=== PATIENT | female | born 1980 | race Caucasian/White ===

== ENCOUNTER 2016-10-26 00:25 | Inpatient (IN) | payer OTHER ==
[~2016-10-26] VITALS: Ht 157.5 cm; Wt 69.4 kg
[2016-10-26] VITALS (16 sets, daily range): BP systolic 118–141; BP diastolic 78–94; PULSE 70–84; RESP 16–20; TEMP 97.9
[~2016-10-26 00:25] MED LIST: IBUP600 PO; OXYC1SOL5 PO; PREN0.01 PO
[2016-10-26] MEDS ORDERED: LACTATED RINGER'S 1000 ML INJ 1,000 ML IV SCH (01:28)
[2016-10-26] MEDS ORDERED: LACTATED RINGER'S 1000 ML INJ 1,000 ML IV PRN (01:28)
--- NOTE | 2016-10-26 01:28 | HHI.HP ---
HPI Chief Complaint My water broke and graham Date Seen: Oct 26, 2016 Travel History International Travel<30 Days: No Contact w/Intl Traveler<30Days: No Known Affected Area: No History of Present Illness HPI This patient is 36-year-old white female at 36-1/2 weeks who presents with gross spontaneous rupture the membranes and labor, she denies bleeding. She sees Dr. Galan for care. On the heart tones are within normal limits ,reactive, contractions are noted every 2-3 minutes. The amnio sure was positive Para: 1 : 2 History Obstetric History Obstetric History One vaginal delivery and with that had gestational diabetes Social History Alcohol Use: No Tobacco Use: No Substance Abuse: No Allergies-Medications (Allergen,Severity, Reaction): Coded Allergies: No Known Allergies (Unverified , 07/25/14) Home Meds Active Scripts Oxycodone W/ Acetaminophen (Oxycodone/Acetaminophen 5-325 mg/5Ml)1 Tab Tab1 Tab PO Q4H #15 TAB Prov:Patricia Royal MD 07/26/14 Ibuprofen (Motrin 600 Mg Tab)600 Mg [id number] Mg PO Q6H PRN ( CRAMPING) # 30 TAB Prov:Patricia Royal MD 07/26/14 Reported Medications Multivit/Min/Fol Ac/Iron/Pren ( Vit ( Plus)) Tab1 Tab PO DAILY 07/25/14 Review of Systems General / Constitutional: No: Fever, Weight Gain, Chills, Other Eyes: No: Diploplia, Blurred Vision, Visual changes, Pain, Photophobia HENT: No: Headaches, Vertigo, Lightheadedness Cardiovascular: No: Irregular Rhythm, Chest Pain or Discomfort, Palpitations, Tachycardia, Syncope, Varicosities, Edema, Cyanosis Respiratory: No: Cough, Short of Breath, Other Gastrointestinal: No: Nausea, Vomiting, Diarrhea Genitourinary: No: Decreased Urinary Output, Oliguria Musculoskeletal: No: Limited ROM, Weakness, Cramping, Edema, Pain Skin: No Rash, No Itching, No Dryness, No Lumps, No Change in Pigmentation, No Change in Nails, No Alopecia, No Lesions Neurologic: No: Weakness, Dizziness, Syncope, Focal Abnormalities, Coordination Problem, Headache, Slurred Speech, Seizures Psychiatric: No: Depression, Suicidal Ideations, Homicidal Ideation Endocrine: No: Heat Intolerance, Cold Intolerance, Polydipsia, Polyuria, Other Physical Exam Narrative GENERAL: Well-nourished, well-developed patient. SKIN: Warm and dry. HEAD: Normocephalic and atraumatic. EYES: No scleral icterus. No injection or drainage. ENT: No nasal drainage noted. Mucous membranes pink. Airway patent. NECK: Supple, trachea midline. No JVD. CARDIOVASCULAR: Regular rate and rhythm without murmurs, gallops, or rubs. RESPIRATORY: Breath sounds equal bilaterally. No accessory muscle use. BREASTS: Bilateral exam showed no masses , no retractions, no nipple discharge. ABDOMEN/GI: Abdomen soft, non-tender, bowel sounds present, no rebound, no guarding Gravid to [35-] weeks size Fundal Height: [36-] GENITOURINARY: External Genitalia: intact and normal in appearance BUS glands: [-] Cervix: [-] Dilatation: [4-5-] Effacement: [90-] Station: [-1] Presentation: [-vtx] Membranes: ruptured] amnio sure positive Uterine Contractions: [-q 2-3 min] FHT's: Category: [-1] Baseline: [-133] Reactive: [yes-] Variability: [mod-] Decels: [none-] EXTREMITIES: No cyanosis or edema. BACK: Nontender without obvious deformity. No CVA tenderness. NEUROLOGICAL: Awake and alert. Motor and sensory grossly within normal limits. Five out of 5 muscle strength in all muscle groups. Normal speech. Data Data Labs Amnio sure positive Assessment/Plan Assessment and Plan This patient is 36-year-old white female 36-1/2 weeks presents with ruptured membranes in labor. Cervix is 4-5 cm 90% -1 vertex, amnio sure is positive gross rupture membranes noted on exam, she is graham every 2-3 minutes with a lot of pain., will contact Dr. Galan of the [facility] notify her of the patient's arrival Obed Garcia II, MD Oct 26, 2016 01:28
[2016-10-26] MEDS ORDERED: CITRIC ACID-SODIUM CITRATE LIQ 30 ML UDC PO SCH (01:30)
[2016-10-26] MEDS ORDERED: PENICILLIN G POTASSIUM INJ 5,000,000 UNITS in SODIUM CHLORIDE 0.9% INJ 100 ML IV ONE (01:30)
[2016-10-26] MEDS ORDERED: MINERAL OIL 10 ML VIAL TOPICAL PRN (01:30)
[2016-10-26] MEDS ORDERED: LIDOCAINE HCL 1% 50 ML VIAL INFIL PRN (01:30)
[2016-10-26] MEDS ORDERED: OXYTOCIN 30 UNITS-500ML PREMIX 500 ML IV ONE (01:30)
[2016-10-26] MEDS ORDERED: SODIUM CHLORID 0.9% 500 ML INJ 500 ML IV PRN (01:30)
[2016-10-26] MEDS ORDERED: LIDOCAINE HCL 1% 50 ML VIAL I-DERMAL PRN (01:30)
[2016-10-26] MEDS ORDERED: SODIUM CHLOR 0.9% 1000 ML INJ 1,000 ML IV PRN (01:48)
[2016-10-26 01:50] LABS: BLOOD, URINE NEG (NEG); GLUCOSE,URINE NEG (NEG); HYALINE CAST, URINE 1 /lpf (RARE); KETONE, URINE NEG (NEG); NITRITE,URINE NEG (NEG); PH, URINE 6.5 (5.0-8.5); SQUAMOUS EPITHELIAL CELL URINE <1 /hpf (0-5); TRANSITIONAL EPI CELLS, URINE <1 /hpf; URINE COLOR LIGHT-YELLOW (YELLW/STRAW)
[2016-10-26 01:51] LABS: COMMENT (UR) CULT NOT INDICATED; CULTURE IF INDICATED CULT NOT INDICATED
[2016-10-26 02:15] LABS: AUTOMATED NEUTROPHIL # 8.7 TH/MM3 (1.8-7.7); BASOPHIL % 0.3 % (0.0-2.0); EOSINOPHIL # 0.3 TH/MM3 (0-0.4); EOSINOPHIL % 2.6 % (0.0-4.0); HEMATOCRIT 36.3 % (35.0-46.0); HEMO FLAGS DIFF FINAL; LYMPH % 17.1 % (9.0-44.0); MEAN CELL VOLUME 83.8 FL (80.0-100.0); MEAN CORPUSCULAR HEMOGLOBIN 27.9 PG (27.0-34.0); MEAN CORPUSCULAR HGB CONC 33.2 % (32.0-36.0); MONO % 7.2 % (0.0-8.0); NEUT % 72.8 % (16.0-70.0); PLATELET COUNT 230 TH/MM3 (150-450); RED BLOOD COUNT 4.33 MIL/MM3 (4.00-5.30); RED CELL DISTRIBUTION WIDTH 14.4 % (11.6-17.2)
[2016-10-26 02:35] LABS: AMPHETAMINE, URINE NEG (NEG); BARBITURATES, URINE NEG (NEG); COCAINE, URINE NEG (NEG)
--- NOTE | 2016-10-26 02:54 | PD.OB.DELI ---
Delivery Date: Oct 26, 2016 Anesthesia: None Episiotomy: None Vaginal Delivery: Normal Presentation: Occiput anterior Nuchal Cord: None Delayed cord clamping (45 sec): Yes Infant: Female One Minute : 8 Five Minute : 9 Weight: 5 lb 15 Placenta: Spontaneous delivery Laceration: No lacerations Additional Information ebl 300ml Gabrielle Galan MD Oct 26, 2016 02:54
[2016-10-26] MEDS ORDERED: ALUMINUM/MAGNESIUM/SIMETH 30 ML CUP PO PRN (03:00)
[2016-10-26] MEDS ORDERED: ZOLPIDEM TARTRATE 5 MG TAB PO PRN (03:00)
[2016-10-26] MEDS ORDERED: ONDANSETRON ODT 4 MG TAB PO PRN (03:00)
[2016-10-26] MEDS ORDERED: BENZOCAINE 20% TOPICAL SPRAY 60 ML CAN TOPICAL PRN (03:00)
[2016-10-26] MEDS ORDERED: SODIUM CHLORIDE 0.9% FLUSH 10 ML FLUSH IV FLUSH PRN (03:00)
[2016-10-26] MEDS ORDERED: IBUPROFEN 600 MG TAB PO PRN (03:00)
[2016-10-26] MEDS ORDERED: ACETAMINOPHEN 325 MG TAB PO PRN (03:00)
[2016-10-26] MEDS ORDERED: WITCH HAZEL 50%/GLYCERIN 12.5% 40 PAD JAR TOPICAL PRN (03:00)
[2016-10-26] MEDS ORDERED: DOCUSATE SODIUM 50 MG/SENNA 8.6 MG TAB PO PRN (03:00)
[2016-10-26] MEDS ORDERED: PENICILLIN G POTASSIUM INJ 2,500,000 UNITS in SODIUM CHLORIDE 0.9% INJ 100 ML IV SCH (06:00)
[2016-10-26] MEDS ORDERED: SODIUM CHLORIDE 0.9% FLUSH 10 ML FLUSH IV FLUSH SCH (09:00)
--- NOTE | 2016-10-26 12:37 | HHI.OB ---
Subjective Post Day: 0 Remarks PPD#0, No c/o. doing well Objective Vitals/I&O Vital Signs Date Time Temp Pulse Resp B/P Pulse Ox O2 Delivery O2 Flow Rate FiO2 10/26/16 08:00 76 118/82 10/26/16 08:00 97.9 16 10/26/16 04:07 18 10/26/16 04:00 78 125/81 10/26/16 03:58 84 10/26/16 03:58 129/87 10/26/16 03:45 78 141/78 10/26/16 03:45 18 10/26/16 03:30 82 127/79 10/26/16 03:15 136/94 10/26/16 03:13 18 10/26/16 03:11 70 140/90 10/26/16 02:25 73 10/26/16 02:15 20 10/26/16 02:10 75 10/26/16 01:55 75 10/26/16 01:35 76 10/26/16 01:25 80 10/26/16 01:10 78 Objective Remarks GENERAL: Well-nourished, well-developed patient. CARDIOVASCULAR: Regular rate and rhythm without murmurs, gallops, or rubs. RESPIRATORY: Breath sounds equal bilaterally. No accessory muscle use. ABDOMEN/GI: Abdomen soft, non-tender. Fundus: Firm, non-tender at umbilicus. GENITOURINARY: Light to moderate bleeding. EXTREMITIES: No cyanosis or edema, non-tender, without signs of DVT. Medications and IVs Current Medications Medications (Trade) Dose Ordered Sig/Imelda Route Start Time Stop Time Status Last Admin (NS Flush) 2 ml BID IV FLUSH 10/26/16 09:00 (NS Flush) 2 ml UNSCH PRN IV FLUSH 10/26/16 03:00 (Tylenol) 650 mg Q4H PRN PO 10/26/16 03:00 (Motrin) 600 mg Q6H PRN PO 10/26/16 03:00 (Americaine 20% Top Spr) 1 spray Q4H PRN TOPICAL 10/26/16 03:00 (Tucks Pads) 1 applic QID PRN TOPICAL 10/26/16 03:00 (Whit-Colace) 2 tab Q12H PRN PO 10/26/16 03:00 (Ambien) 5 mg HS PRN PO 10/26/16 03:00 (M-M-R Ii Inj) 0.5 ml ONCE ONCE SQ 10/26/16 16:00 10/26/16 16:01 (Boostrix Inj) 0.5 ml ONCE ONCE IM 10/26/16 16:00 10/26/16 16:01 (Mag-Al Plus Susp Liq) 15 ml Q8H PRN PO 10/26/16 03:00 (Zofran Odt) 4 mg Q6H PRN PO 10/26/16 03:00 Assessment/Plan Assessment and Plan PPD#0, doing well Discharge Planning Plan for Attending Attestation seen by Aron Lynn MD Oct 26, 2016 12:37
[2016-10-26] MEDS ORDERED: MEASLES, MUMPS, RUBELLA VACCINE 0.5 ML VIAL SQ ONE (16:00)
[2016-10-26] MEDS ORDERED: DIPHTH/TETANUS/ACEL PERTUSSIS (BOOSTER) 0.5 ML VIAL/PFS IM ONE (16:00)
--- NOTE | 2016-10-27 08:18 | HHI.OB ---
Subjective Post Day: 1 Remarks doing well, Objective Vitals/I&O vss afeb Objective Remarks GENERAL: Well-nourished, well-developed patient. CARDIOVASCULAR: Regular rate and rhythm without murmurs, gallops, or rubs. RESPIRATORY: Breath sounds equal bilaterally. No accessory muscle use. ABDOMEN/GI: Abdomen soft, non-tender. Fundus: Firm, non-tender at umbilicus. GENITOURINARY: Light to moderate bleeding. EXTREMITIES: No cyanosis or edema, non-tender, without signs of DVT. Medications and IVs Current Medications Medications (Trade) Dose Ordered Sig/Imelda Route Start Time Stop Time Status Last Admin (NS Flush) 2 ml BID IV FLUSH 10/26/16 09:00 (NS Flush) 2 ml UNSCH PRN IV FLUSH 10/26/16 03:00 (Tylenol) 650 mg Q4H PRN PO 10/26/16 03:00 (Motrin) 600 mg Q6H PRN PO 10/26/16 03:00 (Americaine 20% Top Spr) 1 spray Q4H PRN TOPICAL 10/26/16 03:00 (Tucks Pads) 1 applic QID PRN TOPICAL 10/26/16 03:00 (Whit-Colace) 2 tab Q12H PRN PO 10/26/16 03:00 (Ambien) 5 mg HS PRN PO 10/26/16 03:00 (Mag-Al Plus Susp Liq) 15 ml Q8H PRN PO 10/26/16 03:00 (Zofran Odt) 4 mg Q6H PRN PO 10/26/16 03:00 Assessment/Plan Assessment and Plan PPD#1, doing well Discharge Planning Plan for Attending Attestation pt seen by Lola Brothers MD Oct 27, 2016 08:18
[2016-10-27] MEDS ORDERED: IBUP-232 PO (08:20)
--- NOTE | 2016-10-27 08:21 | HHI.DCPOC ---
Discharge Care Plan Your Health Problems Are: Pelvic pain Report Symptoms to Your Doctor -Temperate above 100.5 degrees -Redness, of incision or excessive or foul smelling drainage -Unusual pain or calf pain -Increased vaginal bleeding -Painful or difficulty urinating -Feelings of extreme sadness or anxiety after 2 weeks Goals to Promote Your Health * To prevent worsening of your condition and complications * To maintain your health at the optimal level Directions to Meet Your Goals Take your medications as prescribed Follow your dietary instruction Follow activity as directed Ensure plenty of rest for recovery Drink fluids for hydration Keep your appointments as scheduled Take your immunizations and boosters as scheduled If your symptoms worsen call your PCP, if no PCP go to Urgent Care Center or Emergency Room Smoking is Dangerous to Your Health. Avoid second hand smoke Call the 24-hour crisis hotline for domestic abuse at Lola Thomason MD Oct 27, 2016 08:21
[2016-10-29 11:32] LABS: OBMETHADONE UR NEG (NEG); PHENCYCLIDINE URINE NEG (NEG)
[2016-10-29 11:33] LABS: ECSTASY (MDMA) UR NEG (NEG); HEROIN (6-ACETYLMORPHINE) UR NEG (NEG); K2 SPICE UR NEG (NEG)
[2016-10-29 11:34] LABS: BATH SALTS (MDPV) UR NEG (NEG); GABAPENTIN UR NEG (NEG); HYDROMORPHONE U NEG (NEG); OXYCODONE (PERCODAN) NEG (NEG)
== END 2016-10-27 14:50 | disposition home or self-care (01) | DRG 775 ==
LOC: HOBED 00:25 → H2EA 01:24 → H1EA 04:19
PROVIDERS: ADMIT Obstetrics & Gynecology; ATTEND Obstetrics & Gynecology
PROC: 10E0XZZ Delivery of Products of Conception, External Approach (ICD-10-PCS; principal; 2016-10-26)
DX: O42.013 Preterm premature rupture of membranes, onset of labor within 24 hours of rupture, third trimester (principal); O62.3 Precipitate labor; Z37.0 Single live birth; Z3A.36 36 weeks gestation of pregnancy; Z86.32 Personal history of gestational diabetes
CPT/HCPCS: 80307; 81001; 84112; 85025; 86900; 86901; 90715; 99285; G0481